=== PATIENT | male | born 1965 | race Caucasian/White ===

== ENCOUNTER 2021-08-27 10:51 | Emergency (ER) | payer BC ==
[2021-08-27 10:55] VITALS: RESP 18; TEMP 101.5
[2021-08-27] MEDS ORDERED: ACETAMINOPHEN TAB 325 MG TAB PO STA (11:20)
[2021-08-27] MEDS ORDERED: IBUPROFEN 600 MG TAB PO STA (11:20)
[2021-08-27] MEDS ORDERED: SODIUM CHLORIDE 0.9% 1,000 ML IV ONE (11:20)
[2021-08-27] MEDS ORDERED: ONDANSETRON 4 MG/2 ML VIAL IVP STA (11:20)
--- NOTE | 2021-08-27 11:26 | ED ---
General Adult HPI - General Chief complaint: Upper Respiratory Infection Stated complaint: covid+, increased body aches Time Seen by Provider: 08/27/21 11:13 Source: patient, RN notes reviewed, old records reviewed Mode of arrival: ambulatory Limitations: no limitations - History of Present Illness Initial comments: Well-appearing 56-year-old male presents to the emergency room with complaints of body aches and fever. Patient states that it started on August 19, tested postive for covid at home on August 20. Patient states that he continues to h ave body aches, fevers, nausea, loss of appetite and occasional cough. He states that his cough has caused him to have one episode of vomiting. He denies any medical problems, no medications on a daily basis -: days(s) (9) Radiation: non-radiation Severity scale (1-10): 4 Quality: aching Consistency: constant Worsens with: none Associated Symptoms: cough, fever/chills, loss of appetite, malaise, nausea/vomiting Treatments Prior to Arrival: none - Related Data Allergies Allergy/AdvReac Type Severity Reaction Status Date / Time No Known Allergies Allergy Verified 08/27/21 10:55 Review of Systems ROS Statement: Those systems with pertinent positive or pertinent negative responses have been documented in the HPI. ROS Other: All systems not noted in ROS Statement are negative. Past Medical History Past Medical History: No Reported History History of Any Multi-Drug Resistant Organisms: None Reported Past Surgical History: No Surgical Hx Reported Past Psychological History: No Psychological Hx Reported Smoking Status: Never smoker Past Alcohol Use History: Occasional Past Drug Use History: None Reported General Exam Limitations: no limitations General appearance: alert, in no apparent distress Head exam: Present: atraumatic, normocephalic, normal inspection Eye exam: Present: normal appearance, EOMI ENT exam: Present: normal exam, normal oropharynx, mucous membranes moist Neck exam: Present: normal inspection, full ROM. Absent: tenderness, meningismus, lymphadenopathy, thyromegaly Respiratory exam: Present: normal lung sounds bilaterally. Absent: respiratory distress, wheezes, rales, rhonchi, stridor, chest wall tenderness, accessory muscle use, decreased breath sounds Cardiovascular Exam: Present: regular rate, normal rhythm, normal heart sounds. Absent: systolic murmur, diastolic murmur, rubs, gallop, clicks Neurological exam: Present: alert, oriented X3, normal gait Psychiatric exam: Present: normal affect, normal mood Skin exam: Present: warm, dry, intact, normal color. Absent: rash Course Vital Signs 08/27/21 08/27/21 08/27/21 10:51 14:14 14:52 Temperature 101.5 F H Pulse Rate 91 76 74 Respiratory 18 18 18 Rate Blood Pressure 153/91 136/83 135/80 O2 Sat by Pulse 96 95 95 Oximetry 08/27/21 15:40 Temperature Pulse Rate 76 Respiratory 18 Rate Blood Pressure 139/84 O2 Sat by Pulse 96 Oximetry Medical Decision Making - Medical Decision Making Patient was given monoclonal antibodies after testing positive today in the emergency room. His symptoms started on August 18. He had no complaints on discharge. He was instructed to return to the emergency room with any new or worsening symptoms, Tylenol and/or Motrin as needed for fevers and body aches. Increase fluid intake. Case discussed with Dr. Rich. - Lab Data Lab Results 08/27/21 Range/Units 11:55 Coronavirus (PCR) Detected A (Not Detectd) Disposition Clinical Impression: COVID-19 Disposition: HOME SELF-CARE Condition: Good Instructions (If sedation given, give patient instructions): Coronavirus Disease 2019 (COVID-19) Additional Instructions: Continue to take Tylenol and/or Motrin as needed for fevers and body aches. You can also take vitamin C, vitamin D and zinc. Increase your fluid intake. Follow-up with your primary care doctor in 1 week. Return to the emergency room with any new or worsening symptoms. Is patient prescribed a controlled substance at d/c from ED?: No Referrals: None,Stated [Primary Care Provider] - 1-2 days Time of Disposition: 15:45
[2021-08-27] MEDS ORDERED: SODIUM CHLORIDE 0.9% 50 ML IVPB ONE (14:00)
[2021-08-27] MEDS ORDERED: CASIRIVIMAB (REGN10933) (EUA) 600 MG, IMDEVIMAB (REGN10987) (EUA) 600 MG in SODIUM CHLO... IVPB ONE (14:15)
[2021-08-27 15:49] VITALS: BP 139/84; PULSE 76
== END 2021-08-27 15:40 | disposition home or self-care (01) ==
LOC: EC 10:51
DX: U07.1 COVID-19 (principal)
CPT/HCPCS: 87635; 99283; 96365; 96375; 96361; J2405; Q0243